=== PATIENT | female | born 2000 | race Caucasian/White ===

== ENCOUNTER 2024-01-21 19:21 | Inpatient (IN) ==
[2024-01-21] MEDS ORDERED: Lidocaine 1% VIAL 10 MG/ML 30 ML VIAL INJ PRN (20:38)
[2024-01-21 22:06] LABS: Urine Benzodiazepine Screen None Detected (None Detect); Urine Cannabinoids Screen None Detected (None Detect); Urine Opiates Screen None Detected (None Detect)
[2024-01-21 22:23] LABS: Hematocrit 31.8 % (35-45); Hemoglobin 10.5 g/dL (11.5-14.3); Mean Corpuscular Hemoglobin 27.3 pg (27-33); Mean Corpuscular Hgb Conc 33.2 g/dL (31-36); Mean Corpuscular Volume 82.4 fL (80-97); Platelet Count 401 10^3/uL (150-450); Red Blood Count 3.86 10^6/uL (3.63-4.92); Red Cell Distribution Width 14.8 % (12-17); White Blood Count 23.3 10^3/uL (3.8-11.8)
[2024-01-21] MEDS: Ondansetron 4 mg VIAL 2 MG/ML 2 ml VIAL ONE (22:30)
[2024-01-21 23:04] LABS: ABS Basophils 0.1 10^3/uL (0.0-0.1); ABS Lymphocytes 1.9 10^3/uL (1.0-4.8); ABS Neutrophils 19.3 10^3/uL (1.5-7.6); ABS Nucleated RBC 0.02 10^3/ul; Eosinophil % 0.1 %; Lymphocyte % 8.2 %; Nucleated Red Blood Cells % 0.1 %/100WBC (0.0-0.8)
[2024-01-22] MEDS: OBEPIDURAL (200 ML) 200 ML EPIDURAL ONE
[2024-01-22] MEDS ORDERED: Sodium Citrate/Citric Acid LIQ 15 ML UDC PO PRN (00:01)
[2024-01-22] MEDS ORDERED: Phenylephrine 40 mcg/mL 10mL (400mcg) SYRINGE IV PUSH PRN ×2 (00:01)
[2024-01-22] MEDS ORDERED: Dibucaine 1% OINT 28.35 GM TUBE PR PRN (04:18)
[2024-01-22] MEDS ORDERED: Witch Hazel PAD JAR TOPICAL PRN (04:18)
[2024-01-22] MEDS ORDERED: Glycerin ADULT 2.4 gm SUPP PR PRN (04:18)
[2024-01-22] MEDS ORDERED: Ibuprofen ADULT LIQ 600 MG/30 ML UDC PO PRN (04:21)
[2024-01-22] MEDS ORDERED: Lactated Ringers 1000 ml BAG 1,000 ML IV SCH (05:00)
[2024-01-22] MEDS: Oxytocin in LR 20,000 MILLI.UNIT/1,000 ML BAG IV SCH (06:32)
[2024-01-22] MEDS: OBEPIDURAL (200 ML) 200 ML EPIDURAL SCH (06:32)
[2024-01-22] MEDS: Lactated Ringers 1000 ml BAG 1,000 ML IV SCH ×2 (06:33→07:15)
[2024-01-22] MEDS: Lidocaine 1.5% EPI 1:200,000 30 ML SDV ONE (06:34)
[2024-01-22] MEDS: Lactated Ringers 1000 ml BAG 1,000 ML IV ONE ×2 (06:34)
[2024-01-22] MEDS: Buffered Lidocaine 1% SYRIN 1 ml INTRADERM ONE (06:34)
[2024-01-22] MEDS: Docusate LIQ 100 MG/10 ML UDC PO SCH (08:00)
[2024-01-23 05:54] LABS: Hemoglobin 10.4 g/dL (11.5-14.3); Mean Corpuscular Hemoglobin 27.7 pg (27-33); Mean Corpuscular Hgb Conc 33.4 g/dL (31-36); Mean Corpuscular Volume 82.8 fL (80-97); Mean Platelet Volume 7.7 fL (7.5-11.2); Platelet Count 353 10^3/uL (150-450); Red Blood Count 3.74 10^6/uL (3.63-4.92); Red Cell Distribution Width 15.4 % (12-17); White Blood Count 24.5 10^3/uL (3.8-11.8)
[2024-01-23 07:19] LABS: ABS Basophils 0.1 10^3/uL (0.0-0.1); ABS Eosinophils 0.2 10^3/uL (0.0-0.5); ABS Lymphocytes 2.7 10^3/uL (1.0-4.8); ABS Monocytes 2.2 10^3/uL (0.0-0.9); ABS Neutrophils 19.2 10^3/uL (1.5-7.6); ABS Nucleated RBC 0.02 10^3/ul; Eosinophil % 0.6 %; Lymphocyte % 11.2 %; Nucleated Red Blood Cells % 0.1 %/100WBC (0.0-0.8)
[2024-01-23 19:53] VITALS: BP 110/79
== END 2024-01-23 21:35 | disposition home or self-care (01) | DRG 560 ==
LOC: MCHOBOUT 19:21 → MCHOB 20:30
PROVIDERS: ADMIT Midwife; ATTEND Midwife